=== PATIENT | female | born 1980 | race Caucasian/White ===

== ENCOUNTER → 2016-10-25 | Outpatient (CLI) | payer MEDICAID, OTHER | LOC: RAD 16:58 | PROVIDERS: ATTEND Otolaryngology | DX: Q89.2 Congenital malformations of other endocrine glands (principal) | CPT/HCPCS: 76536 ==

== ENCOUNTER 2017-02-24 21:08 | Emergency (ER) | payer OTHER, MEDICAID ==
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
[2017-02-24] MEDS ORDERED: LIDOCAINE 5% (700 MG) TRANSDERMAL ADH..PATCH TP ONE (22:19)
[2017-02-24] MEDS ORDERED: IBUPROFEN 600 MG TABLET PO ONE (22:19)
[2017-02-24] MEDS ORDERED: ACETAMINOPHEN 325 MG TABLET PO ONE (22:20)
--- NOTE | 2017-02-24 23:11 | RADIOLOGY REPORT (SQ) ---
EXAM DESCRIPTION: CHEST PA/LAT COMPLETED DATE/TIME: 02/24/2017 10:51 pm REASON FOR STUDY: right low rib pain COMPARISON: None. EXAM PARAMETERS: NUMBER OF VIEWS: two views TECHNIQUE: Digital Frontal and Lateral radiographic views of the chest acquired. RADIATION DOSE: NA LIMITATIONS: none FINDINGS: LUNGS AND PLEURA: No opacities, masses or pneumothorax. No pleural effusion. MEDIASTINUM AND HILAR STRUCTURES: No masses or contour abnormalities. HEART AND VASCULAR STRUCTURES: Heart normal size. No evidence for failure. BONES: No acute findings. HARDWARE: None in the chest. OTHER: No other significant finding. IMPRESSION: NO SIGNIFICANT RADIOGRAPHIC FINDING IN THE CHEST. TECHNICAL DOCUMENTATION: JOB ID: [id number] [employer]- All Rights Reserved
[2017-02-24 23:53] VITALS: BP 109/69
== END 2017-02-24 23:54 | disposition home or self-care (01) ==
LOC: ER 21:08
DX: S80.212A Abrasion, left knee, initial encounter (principal); R07.81 Pleurodynia; M54.9 Dorsalgia, unspecified; V89.2XXA Person injured in unspecified motor-vehicle accident, traffic, initial encounter; Z88.0 Allergy status to penicillin
CPT/HCPCS: 71020; 99283

== ENCOUNTER → 2017-04-01 | Outpatient (CLI) | payer MEDICAID ==
--- NOTE | 2017-04-02 17:44 | RADIOLOGY REPORT (SQ) ---
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 Oral administration in a tablet ADDITIONAL DRUGS AND DOSES: None. TECHNIQUE: Iodine uptake was measured at 4 and 24 hours. Images of the neck were acquired. LIMITATIONS: None. FINDINGS: 4 HOUR UPTAKE RADIO-IODINE: 10.2%. Normal Range of 5-15% [facility] 24 HOUR UPTAKE RADIO-IODINE: 25%. Normal Range of 15-30% [facility] SCAN: The thyroid gland is very heterogeneous, and diffusely enlarged. Multiple warm and cold areas are present. There is a warm area in the medial aspect right upper pole thyroid, and in the inferior most aspect left lobe thyroid. These areas correlate with heterogeneous nodules at ultrasound. OTHER: No other significant finding. IMPRESSION: Normal radio iodine uptake Very heterogeneous thyroid gland with multiple warm and cold areas as above TECHNICAL DOCUMENTATION: JOB ID: [id number]- All Rights Reserved
== END ==
LOC: RAD 08:35
PROVIDERS: ATTEND Physician Assistant
DX: E05.90 Thyrotoxicosis, unspecified without thyrotoxic crisis or storm (principal)
CPT/HCPCS: 78014; A9516

== ENCOUNTER → 2018-04-07 | Outpatient (CLI) | payer MEDICAID ==
--- NOTE | 2018-04-08 09:37 | RADIOLOGY REPORT (SQ) ---
EXAM DESCRIPTION: NM THYROID SCAN AND UPTAKE COMPLETED DATE/TIME: 04/08/2018 9:07 am REASON FOR STUDY: THYROTOXICOSIS (E05.90) E05.90 THYROTOXICOSIS, UNSP WITHOUT THYROTOXIC CRISIS OR STO COMPARISON: 04/01/2017 thyroid radio iodine and uptake Thyroid ultrasound 10/25/2016 RADIONUCLIDE AND DOSE: 330 microcuries iodine 123. The route of agent administration: Oral and Intravenous ADDITIONAL DRUGS AND DOSES: None. TECHNIQUE: Iodine uptake was measured at 4 and 24 hours. Images of the neck were acquired. LIMITATIONS: None. FINDINGS: 4 HOUR UPTAKE RADIO-IODINE: 13.5%. Normal Range of 5-15% [facility] 24 HOUR UPTAKE RADIO-IODINE: 30.1%. Normal Range of 15-30% [facility] SCAN: Heterogeneous uptake of the radionuclide throughout both lobes of the gland and isthmus with ar eas of increased and decreased activity. Pattern of warm and cold areas in the thyroid gland is avani lar compared to 04/01/2017. OTHER: No other significant finding. IMPRESSION: Heterogeneous activity throughout the thyroid gland on radio iodine imaging, with multip le warm and cold areas correlating with multiple thyroid nodules at ultrasound. Radio iodine uptake is at the upper limits of normal for 4 hours and 24 hours. TECHNICAL DOCUMENTATION: JOB ID: [id number] [employer]- All Rights Reserved Reading location - IP/workstation name: [email or web address]
== END ==
LOC: RAD 08:33
PROVIDERS: ATTEND Physician Assistant
DX: E05.90 Thyrotoxicosis, unspecified without thyrotoxic crisis or storm (principal)
CPT/HCPCS: 78014; A9516

== ENCOUNTER 2020-01-01 19:13 | Emergency (ER) | payer MEDICAID ==
--- NOTE | 2020-01-01 20:43 | ER Document Report ---
HPI - HPI Time Seen by Provider: 01/01/20 20:37 Pain Level: 1 Context: Patient is a 39-year-old female presents emergency department with a chief complaint of erythema to the right side of her face to the right of her nose. Patient has history of abscesses in the past. Patient states that she did take clindamycin to help clear them up. Denies any body aches or chills. - CONSTITUTIONAL Constitutional: DENIES: Fever, Chills - EENT EENT: DENIES: Sore Throat, Ear Pain, Eye problems - NEURO Neurology: DENIES: Headache, Weakness, Vision blurred, Dizzinesss / Vertigo - CARDIOVASCULAR Cardiovascular: DENIES: Chest pain - RESPIRATORY Respiratory: DENIES: Trouble Breathing, Coughing - GASTROINTESTINAL Gastrointestinal: DENIES: Abdominal Pain, Black / Bloody Stools - URINARY Urinary: DENIES: Dysuria, Urgency, Frequency - REPRODUCTIVE Reproductive: DENIES: : - MUSCULOSKELETAL Musculoskeletal: DENIES: Extremity pain Past Medical History - Social History Smoking Status: Never Smoker Chew tobacco use (# tins/day): No Frequency of alcohol use: Rare Drug Abuse: None Family History: Reviewed & Not Pertinent Patient has homicidal ideation: No - Past Medical History Cardiac Medical History: Reports: Hx Heart Murmur Denies: Hx Hypertension, Hx Pulmonary Embolism Pulmonary Medical History: Reports: Hx Asthma Denies: Hx Sleep Apnea, Hx Tuberculosis Neurological Medical History: Denies: Hx Seizures Renal/ Medical History: Denies: Hx Ovarian Cysts, Hx Peritoneal Dialysis, Hx Pelvic Inflammatory Disease Malignancy Medical History: Denies: Hx Breast Cancer, Hx Ovarian Cancer Psychiatric Medical History: Reports: Hx Depression Denies: Hx Bipolar Disorder, Hx Post Traumatic Stress Disorder, Hx Schizophrenia Past Surgical History: Denies: Hx Hysterectomy, Hx Pacemaker - Immunizations Hx Diphtheria, Pertussis, Tetanus Vaccination: Yes - given today Vertical Provider Document - CONSTITUTIONAL Agree With Documented VS: Yes Exam Limitations: No Limitations General Appearance: No Apparent Distress - INFECTION CONTROL TRAVEL OUTSIDE OF THE [place] IN LAST 30 DAYS: No - HEENT HEENT: Atraumatic, Normocephalic, PERRLA Notes: small noted to right side of face. - RESPIRATORY Respiratory: No Respiratory Distress - CARDIOVASCULAR Cardiovascular: Regular Rate - MUSCULOSKELETAL/EXTREMETIES Musculoskeletal/Extremeties: FROM - NEURO Level of Consciousness: Awake, Alert, Appropriate Motor/Sensory: No Motor Deficit, No Sensory Deficit - DERM Integumentary: Abscess - right side of face Course - Re-evaluation Re-evalutation: 01/01/20 20:43 Patient's physical exam is consistent with an abscess to her face. Advised patient to start warm compresses and patient will be prescribed clindamycin. She will follow-up with primary care provider. Follow-up precautions were given. Verbal discharge instructions were given to the patient. They verbalized understanding. They are stable for discharge. - Vital Signs Vital signs: Temp Pulse Resp BP Pulse Ox 98.5 F 60 16 117/60 99 01/01/20 19:20 01/01/20 19:20 01/01/20 19:20 01/01/20 19:20 01/01/20 19:20 Discharge - Discharge Clinical Impression: Abscess Cellulitis Qualifiers: Site of cellulitis: face Qualified Code(s): L03.211 - Cellulitis of face Condition: Stable Disposition: HOME, SELF-CARE Additional Instructions: You were seen today in the emergency department for facial swelling. You have a small abscess there and let the area drain. Please warm compress to the area. Start your antibiotics. Follow-up with your primary care provider. If the redness or swelling gets worse in the next 72 hours, please return to the emergency department. Prescriptions: Clindamycin HCl [Cleocin 150 mg Capsule] 300 mg PO Q6 7 Days #56 capsule Referrals: ELMER SIMMONS MD [Primary Care Provider] - Follow up in 1 week
[2020-01-01 20:59] VITALS: BP 116/68
== END 2020-01-01 20:59 | disposition home or self-care (01) ==
LOC: ER 19:13
DX: L03.211 Cellulitis of face (principal); L02.91 Cutaneous abscess, unspecified; J45.909 Unspecified asthma, uncomplicated
CPT/HCPCS: 99283